=== PATIENT | female | born 1965 | race Asian ===

== ENCOUNTER 2017-01-12 21:52 | Emergency (ER) | payer OTHER, SELFPAY ==
[~2017-01-12] VITALS: Ht 149.9 cm; Wt 70.4 kg
[~2017-01-12 21:52] MED LIST: HYDR-882 PO; ONDA4TAB7 PO
[2017-01-12 21:55] VITALS: BP 136/81
[2017-01-12] MEDS ORDERED: IBUPROFEN 200 MG TABLET ONE (22:20)
[2017-01-12] MEDS ORDERED: MECLIZINE CHEWABLE 25 MG TAB ONE (22:21)
[2017-01-12] MEDS: IBUPROFEN 200 MG TABLET PO ONE ×2 (22:28→22:35)
[2017-01-12] MEDS ORDERED: MECLIZINE CHEWABLE 25 MG TAB PO ONE (22:30)
== END 2017-01-12 22:51 | disposition home or self-care (01) ==
LOC: ED 22:46
DX: H65.02 Acute serous otitis media, left ear (principal); J45.909 Unspecified asthma, uncomplicated
CPT/HCPCS: 99283; J7512